=== PATIENT | female | born 1990 | race Two or more races ===

== ENCOUNTER → 2024-12-30 | Outpatient (CLI) | payer MEDICAID, SELFPAY ==
[2024-12-30 11:46] LABS: HCG Qualitative,Urine Negative
--- NOTE | 2024-12-30 11:49 | XR_ITS ---
Examination: CT abdomen with intravenous contrast. Coronal 2-D reconstructions. Sagittal 2-D reconstructions. Date and time of exam:December 30, 2024, 1216 hours INDICATIONS: Brain lesion on MRI study this month CTDI: vol (mGy): 8.90 DLP: (mGycm): 373 Technique: Axial images of the abdomen have been obtained, 3 mm slice thickness, 60 cc [id number] 2-D sagittal coronal reconstructions Low dose protocols were performed. One or more of the following dose reduction techniques were used; automated exposure control, adjustment of the mA and/or KV according to patient size, use of iterative reconstruction technique. Findings: No focal liver or splenic lesion Distended gallbladder with gallbladder wall thickening and small stones No pancreatic mass Common bile duct is not enlarged No renal or ureteral calculi, no hydronephrosis Small fat-containing umbilical hernia No bowel obstruction IMPRESSION: Recommend hepatobiliary sonography to confirm acute calculus cholecystitis
== END | disposition home or self-care (01) ==
LOC: SCAT 10:50
PROVIDERS: PCP Registered Nurse Community Health; Referring Provider Registered Nurse Community Health; Visit Provider Registered Nurse Community Health
DX: N20.0 Calculus of kidney (principal)
CPT/HCPCS: 74160; 81025; A4649; Q9967

== ENCOUNTER → 2025-01-17 | Outpatient (CLI) | payer MEDICAID, SELFPAY ==
--- NOTE | 2025-01-17 10:06 | XR_ITS ---
Examination: Abdomen sonogram, Limited Date and time of exam: January 17, 2025, 1021 hours INDICATIONS: History distended abdomen, cholecystectomy Technique: Real-time freed scale transabdominal sonographic images of the upper abdomen obtained. Findings: Absent gallbladder Normal common bile duct 0.4 cm Pancreatic head 1.8 cm Liver 16.3 cm fatty infiltration Normal hepatopedal portal venous oh Patent IVC IMPRESSION: Normal common bile duct. Mild hepatomegaly fatty infiltration
== END | disposition home or self-care (01) ==
LOC: CDIM 09:59
PROVIDERS: PCP Nurse Practitioner Family; Referring Provider Nurse Practitioner Family; Visit Provider Nurse Practitioner Family
DX: K76.0 Fatty (change of) liver, not elsewhere classified (principal)
CPT/HCPCS: 76705